=== PATIENT | female | born 1930 | race Two or more races ===

== ENCOUNTER 2018-02-09 08:24 | Emergency (ER) | payer MEDICARE, OTHER ==
[2018-02-09] MEDS ORDERED: Lidocaine 1% 5ml(IM or SUTURE)(PAIN CLINIC) ONE (08:44)
--- NOTE | 2018-02-09 09:08 | ED Physician Documentation ---
General Adult - HISTORIAN Historian: patient - HPI Stated Complaint: Lac to Forehead Chief Complaint: Head Injury Additional Information: Patient got up in the night and tripped and fell in the dark striking hear forehead on furniture. Was able to get bleeding to stop. Came in to the ED for treatment this AM. Denies any headache, nausea, neuro deficit noted. Patient denies any other injury. No LOC noted. Onset: hours (0330 this am) Timing: still present - ROS CONST: no problems. denies: fever, chills - PAST HX Past History: hypertension Other History: none Surgeries/Procedures: cholecystectomy, hysterectomy, other (TKR, appendectomy, thyroidectomy, cataract) Immunizations: tetanus (1 year ago) Allergies/Adverse Reactions: Allergies Allergy/AdvReac Type Severity Reaction Status Date / Time No Known Allergies Allergy Unverified 02/09/18 09:08 Home Medications: Ambulatory Orders Medication Instructions Recorded Brimonidine Tartrate/Timolol 02/09/18 [Combigan 0.2%-0.5% Eye Drops] Latanoprost [Xalatan] 1 drop OP 02/09/18 Levothyroxine Sodium [Synthroid] 125 mcg PO DAILY 02/09/18 Omeprazole 20 mg PO DAILY 02/09/18 Valsartan/Hydrochlorothiazide 1 each PO 02/09/18 [Diovan Hct 160-12.5 mg Tab] - SOCIAL HX Smoking History: non-smoker Alcohol Use: none Drug Use: none - FAMILY HX Family History: No - VITAL SIGNS Vital Signs: Vital Signs Temp Pulse Resp BP Pulse Ox 97.1 F L 86 18 178/72 98 02/09/18 08:25 02/09/18 08:25 02/09/18 08:25 02/09/18 08:25 02/09/18 08:25 - REVIEWED ASSESSMENTS Nursing Assessment Reviewed: Yes Vitals Reviewed: Yes Procedures Wound Location: head (mid forehead) Wound Length: 2.1 cm Wound's Depth, Shape: superficial, linear Wound Explored: no foreign body removed Betadine Prep?: No (dynahex) Anesthesia: 1% Lidocaine Volume of Anesthetic: 1.4ml Wound Debrided: none Wound Repaired With: sutures Suture Size/Type: 5:0 Number of Sutures: 5 Layer Closure?: No Sterile Dressing Applied?: Yes ED Results Lab/Radiology - Orders Orders: ED Orders Category Date Time Status Lidocaine 1% 5ml(IM or SUTURE) [Xylocaine] Med 02/09/18 08:44 Discontinued 50 mg .ROUTE .STK-MED ONE General Adult Physical Exam - PHYSICAL EXAM GENERAL APPEARANCE: no distress EENT: eye inspection normal, ENT inspection normal, pharynx normal NECK: normal inspection, supple RESPIRATORY: no resp distress, chest non-tender, breath sounds normal. No: wheezes, rales, rhonchi CVS: reg rate & rhythm, heart sounds normal, equal pulses, no murmur ABDOMEN: soft, no organomegaly RECTAL: normal exam, normal rectal tone, heme negative stool BACK: normal inspection SKIN: warm/dry, other (laceration to the mid forehead area) EXTREMITIES: non-tender, normal range of motion, no evidence of injury NEURO: oriented X3, CN's nml as tested, motor nml, sensation nml, mood/affect nml, cognition normal Discharge Clincal Impression: Head injury Laceration of forehead Qualifiers: Encounter type: initial encounter Qualified Code(s): S01.81XA - Laceration without foreign body of other part of head, initial encounter Referrals: Kelle Stewart, PRN [Primary Care Provider] - 2 Days Additional Instructions: Keep the wound clean and dry. You may run water over the wound such as washing your hair. Watch for any signs of infection. Have sutures removed in 7 days. Follow head instruction sheet. Condition: Stable Disposition: 01 HOME, SELF-CARE Decision to Admit: NO Date of Decison to Admit: 02/09/18 Decision Time: 09:05
[2018-02-09 09:17] VITALS: BP 170/74
== END 2018-02-09 09:15 | disposition home or self-care (01) ==
LOC: ED 08:24
DX: S01.81XA Laceration without foreign body of other part of head, initial encounter (principal); S09.90XA Unspecified injury of head, initial encounter; W19.XXXA Unspecified fall, initial encounter; Y92.009 Unspecified place in unspecified non-institutional (private) residence as the place of occurrence of the external cause; Y93.9 Activity, unspecified; Y99.9 Unspecified external cause status
CPT/HCPCS: 12011; 96372